=== PATIENT | female | born 1970 | race Caucasian/White ===

== ENCOUNTER → 2020-02-19 09:47 | Outpatient (BNVA) | payer BC, SELFPAY | PROVIDERS: Visit Provider Internal Medicine Gastroenterology | DX: Z76.89 Persons encountering health services in other specified circumstances (principal) ==

== ENCOUNTER 2020-03-09 09:06 | Outpatient (REF) | payer BC, SELFPAY ==
--- NOTE | 2020-03-09 09:11 | US_ITS ---
EXAMINATION: US ABDOMEN COMPLETE CLINICAL INFORMATION: Unspecified abdominal pain, thrombocytopenia. COMPARISON: None TECHNIQUE: Real-time imaging of the abdominal viscera. Technically difficult study secondary to body habitus. FINDINGS: PANCREAS: Head and body appear unremarkable without abnormal mass or peripancreatic inflammatory change. Tail is obscured by overlying bowel gas. ABDOMINAL AORTA: The proximal, mid, and distal segments are normal in caliber. INFERIOR VENA CAVA: Visualized portions are normal. LIVER: There is homogeneously increased echogenicity consistent with fatty infiltration. The liver is normal in size. The liver contour is normal. No focal hepatic lesion. There is no intrahepatic biliary duct dilatation seen. GALLBLADDER: Normal. The gallbladder is physiologically distended without evidence of stones, sludge, polyps, wall thickening or pericholecystic fluid. COMMON BILE DUCT: Normal in caliber measuring 0.4 cm in diameter. RIGHT KIDNEY: Normal. No hydronephrosis. No renal calculi or focal parenchymal lesions. The kidney measures 11.4 cm in maximum dimension. LEFT KIDNEY: Normal. No hydronephrosis. No renal calculi or focal parenchymal lesions. The kidney measures 11.9 cm in maximum dimension. SPLEEN: Normal. The spleen measures 13.4 cm in maximum dimension. FREE FLUID: None. US/US abdomen complete IMPRESSION: Findings consistent with fatty infiltration of the liver.
== END 2020-03-09 09:07 | disposition home or self-care (01) ==
LOC: HO.US 09:06
PROVIDERS: Visit Provider Internal Medicine Gastroenterology
DX: R10.9 Unspecified abdominal pain (principal); D69.6 Thrombocytopenia, unspecified
CPT/HCPCS: 76700

== ENCOUNTER 2020-03-31 | Outpatient (REF) | payer OTHER, SELFPAY ==
[2020-04-09 14:32] LABS: FIT1 NEGATIVE (NEGATIVE)
[2020-04-09 14:33] LABS: FIT Int Ctl YES
== END 2020-03-31 00:01 | disposition home or self-care (01) ==
LOC: HO.LNP
PROVIDERS: Visit Provider Internal Medicine Gastroenterology
DX: R10.9 Unspecified abdominal pain (principal); Z12.11 Encounter for screening for malignant neoplasm of colon; D69.6 Thrombocytopenia, unspecified
CPT/HCPCS: 82274

== ENCOUNTER 2020-05-07 10:27 | Outpatient (REF) | payer BC, SELFPAY ==
--- NOTE | ~2020-05-07 | US_ITS ---
EXAMINATION: RIGHT and LEFT LOWER EXTREMITY VENOUS ULTRASOUND (Reflux Exam) CLINICAL INDICATION: Varicose veins COMPARISON: None. TECHNIQUE: Color flow triplex imaging and compression Doppler was performed to evaluate both the deep and the superficial systems bilaterally. To evaluate the superficial system, the examination was performed in the upright position. Color-flow Doppler ultrasound and compression ultrasound were utilized. In addition, maneuvers were utilized to demonstrate reflux. FINDINGS: 1. DEEP VENOUS ULTRASOUND OF THE RIGHT LOWER EXTREMITY: Respiratory variation, normal compression and augmented flow are noted in the right common femoral vein as well as the right popliteal vein and there is no evidence of deep venous thrombosis at these locations. There is no evidence of reflux in the deep system in either the common femoral vein or the popliteal vein. No popliteal artery aneurysm or popliteal fossa cyst. 2. SUPERFICIAL ULTRASOUND WITH DOPPLER OF RIGHT LOWER EXTREMITY: The right great saphenous vein at the saphenofemoral junction measures 7 mm with no reflux, at the mid thigh 6 mm with reflux up to 2 seconds duration. [id number] 3 mm no reflux, [id number] 4 mm no reflux, at mid calf 4 mm is no reflux, and at the ankle measures 3 mm with venous insufficiency up to approximately 2 seconds duration. The right small saphenous vein measures 4 mm and shows no reflux. There is a varicosity within the mid thigh measuring 8 mm in diameter with reflux time of 2.4 seconds. 3. DEEP VENOUS ULTRASOUND OF THE LEFT LOWER EXTREMITY: Respiratory variation, normal compression and augmented flow are noted in the left common femoral vein as well as the left popliteal vein and there is no evidence of deep venous thrombosis at these locations. There is no evidence of reflux in the deep system in either the common femoral vein or the popliteal vein. No popliteal artery aneurysm. No popliteal fossa cyst. 4. SUPERFICIAL ULTRASOUND WITH DOPPLER OF LEFT LOWER EXTREMITY: Left great saphenous vein at the saphenofemoral junction measures 7 mm, at the mid thigh 4 mm, [id number] 5 mm, [id number] 4 mm, at mid calf 4 mm and at the ankle measures 4 mm. The only region of reflux is seen below the knee were the duration of insufficiency is 2.8 seconds. The left small saphenous vein measures 3 mm and shows no reflux. US/US venous duplex LE BI IMPRESSION: 1. No evidence of reflux or thrombus in the common femoral veins or popliteal veins bilaterally. 2. Right greater saphenous vein insufficiency seen in the mid thigh with duration of 2 seconds and at the ankle with duration of 2 seconds. No insufficiency seen at the right saphenofemoral junction. 3.Left greater saphenous vein insufficiency noted only at below the knee in duration at 2.8 seconds. No saphenofemoral junction reflux identified in the left leg.
== END 2020-05-07 10:28 | disposition home or self-care (01) ==
LOC: HO.US 10:27
PROVIDERS: Visit Provider Surgery Vascular Surgery
DX: I83.893 Varicose veins of bilateral lower extremities with other complications (principal)
CPT/HCPCS: 93970

== ENCOUNTER → 2020-05-26 15:29 | Outpatient (BNVA) | payer BC, SELFPAY | PROVIDERS: Visit Provider Surgery Vascular Surgery ==

== ENCOUNTER → 2020-06-26 15:23 | Outpatient (BNVA) | payer BC, SELFPAY | PROVIDERS: PCP Internal Medicine; Visit Provider Internal Medicine Gastroenterology ==

== ENCOUNTER 2021-07-13 07:34 | Outpatient (REF) | payer OTHER, SELFPAY ==
[2021-07-13 08:07] LABS: COVID-19 Test Negative (Negative)
== END 2021-07-13 07:35 | disposition home or self-care (01) ==
LOC: HO.LAB 07:34
PROVIDERS: PCP Internal Medicine; Visit Provider Internal Medicine
DX: Z20.822 Contact with and (suspected) exposure to COVID-19 (principal)
CPT/HCPCS: 87635; C9803

== ENCOUNTER 2021-08-10 14:10 | Outpatient (REF) | payer BC, SELFPAY ==
--- NOTE | ~2021-08-10 | XR_ITS ---
EXAMINATION: XR KNEE, BILATERAL CLINICAL INFORMATION: Bilateral knee pain. COMPARISON: None TECHNIQUE: 4 views each knee. FINDINGS: Right Knee: The medial and lateral compartment joint space is maintained normal. There is mild loss of patellofemoral compartment joint space. No bony erosive changes or loose body seen. There is no abnormal joint effusion. There is minimal patellofemoral compartment spurring. Left Knee: The tricompartment joint space is normal. No visible acute fracture, dislocation or loose body seen. The soft tissues are normal. XR/XR knee LT 4V IMPRESSION: Mild degenerative changes patellofemoral compartment with mild suprapatellar joint effusion and minimal right lateral patellar spurring right knee. Minimal superior patellar spurring left knee. No visible acute fracture or dislocation seen.
--- NOTE | ~2021-08-10 | XR_ITS ---
EXAMINATION: XR KNEE, BILATERAL CLINICAL INFORMATION: Bilateral knee pain. COMPARISON: None TECHNIQUE: 4 views each knee. FINDINGS: Right Knee: The medial and lateral compartment joint space is maintained normal. There is mild loss of patellofemoral compartment joint space. No bony erosive changes or loose body seen. There is no abnormal joint effusion. There is minimal patellofemoral compartment spurring. Left Knee: The tricompartment joint space is normal. No visible acute fracture, dislocation or loose body seen. The soft tissues are normal. XR/XR knee RT 4V IMPRESSION: Mild degenerative changes patellofemoral compartment with mild suprapatellar joint effusion and minimal right lateral patellar spurring right knee. Minimal superior patellar spurring left knee. No visible acute fracture or dislocation seen.
== END 2021-08-10 14:11 | disposition home or self-care (01) ==
LOC: HO.XRAY 14:10
PROVIDERS: PCP Internal Medicine; Visit Provider Internal Medicine
DX: M25.562 Pain in left knee (principal); M25.561 Pain in right knee
CPT/HCPCS: 73564

== ENCOUNTER → 2022-01-06 13:06 | Outpatient (RCR) | payer OTHER, SELFPAY ==
[2020-02-17 07:03] LABS: COVID-19 Test Negative (Negative)
[2020-03-16 09:49] LABS: SARS-COV-2 PCR UMBRL Not Detected
[2020-03-24 09:52] LABS: SARS-COV-2 PCR UMBRL Not Detected
== END | disposition home or self-care (01) ==
LOC: HO.EMPCOV 02-15 10:50
PROVIDERS: Visit Provider Internal Medicine
DX: Z20.828 Contact with and (suspected) exposure to other viral communicable diseases (principal)
CPT/HCPCS: 87635; C9803; U0003

== ENCOUNTER 2022-02-11 08:38 | Outpatient (REF) | payer BC, SELFPAY ==
[2022-02-11 09:09] LABS: COVID-19 Test Negative (Negative); IDNOW Serial# BCCEAD1C
== END 2022-02-11 08:39 | disposition home or self-care (01) ==
LOC: HO.LAB 08:38
PROVIDERS: Visit Provider Internal Medicine
DX: Z20.822 Contact with and (suspected) exposure to COVID-19 (principal)
CPT/HCPCS: 87635

== ENCOUNTER 2022-03-22 16:03 | Outpatient (REF) | payer BC, SELFPAY ==
--- NOTE | ~2022-03-22 | MM_ITS ---
EXAMINATION: MM SCREENING DIGITAL BREAST TOMOSYNTHESIS, BILATERAL CLINICAL INFORMATION: Screening. Asymptomatic. Age 52. No prior breast imaging. No known family history breast cancer. The lifetime risk of breast cancer based on the Tyrer-Cuzick Model is 7%. COMPARISON: None (current study represents initial baseline exam). TECHNIQUE: Digital breast tomosynthesis is performed in both the craniocaudal and mediolateral oblique views along with computer-aided detection (CAD). Synthesized 2D images are generated from the tomosynthesis. FINDINGS: There are scattered areas of fibroglandular density (ACR BI-RADS breast composition Category b). There are no significant masses, abnormal calcifications, or other abnormalities. The axilla and skin contours are unremarkable. MM/MM tomosynthesis screening BI IMPRESSION: No mammographic evidence of malignancy. ASSESSMENT: BI-RADS 1: Negative RECOMMENDATION: Routine annual mammography screening. This patient's information was entered into a reminder system with a target due date for their next mammogram.
== END 2022-03-22 16:04 | disposition home or self-care (01) ==
LOC: HO.MAMMO 16:03
PROVIDERS: PCP Internal Medicine; Visit Provider Internal Medicine
DX: Z12.31 Encounter for screening mammogram for malignant neoplasm of breast (principal)
CPT/HCPCS: 77063; 77067